=== PATIENT | female | born 1980 | race Caucasian/White ===

== ENCOUNTER 2022-11-22 07:00 | Outpatient (CLI) | payer OTHER ==
--- NOTE | 2022-11-22 15:22 | XRAY Report ---
PROCEDURE: Ankle 3 View LT INDICATIONS: SPRAIN OF LEFT ANKLE TECHNIQUE: 3 views of the ankle were acquired. COMPARISON: None. FINDINGS: Bones: No fractures or dislocations. Ankle mortise is normally aligned. No suspicious bony lesions . Soft tissues: Positive tibiotalar joint effusion. Achilles tendon appears normal. IMPRESSION: Ankle joint effusion. No evidence acute bony abnormality of the left ankle. If clinical suspicion and/or symptoms persist, further assessment with repeat plain films or advanced imaging (e.g., CT, MRI, or bone scan) may be helpful for further assessment. Reviewed by: Good Vu MD on 11/22/2022 3:20 PM PDT Approved by: Good Vu MD on 11/22/2022 3:20 PM PDT Station ID: [id number]
== END 2022-11-22 23:59 | disposition home or self-care (01) ==
LOC: DI.S 07:00
PROVIDERS: ATTEND Emergency Medicine
DX: S93.412A Sprain of calcaneofibular ligament of left ankle, initial encounter (principal); M25.472 Effusion, left ankle

== ENCOUNTER 2022-12-27 15:58 | Outpatient (CLI) | payer OTHER ==
--- NOTE | 2022-12-28 13:26 | Ultrasound Report ---
PROCEDURE: Pelvic w/Transvaginal INDICATIONS: IRREGULAR MENSTRATION TECHNIQUE: Real-time scanning was performed of the pelvic organs, with image documentation. Additional endovagi nal scanning was necessary due to incomplete visualization of the adnexal and endometrial structures by transabdominal scanning. COMPARISON: None. FINDINGS: Uterus: Uterus is anteverted and normal in size at 8.8 x 3.7 x 4.6 cm. The myometrium is homogeneou s. The endometrium measures 11.7 mm in combined thickness. No fibroids noted. Ovaries: The right ovary measures 2.7 x 1.6 x 2.3 cm, with a calculated ovarian volume of 5.2 cc. T he left ovary measures 3.4 x 2 0.0, 3.2 cm, with a calculated ovarian volume of 11.4 cc. The ovaries have a normal sonographic appearance. Less than 12 follicles can be seen in each ovary. No adnexal masses are seen. No cystic lesions measuring greater than 3 cm. Is a hemorrhagic cyst of the left ov jaron measuring 2.6 x 1.8 x 2.1 cm. Other: No pathologic free abdominal or pelvic fluid. IMPRESSION: 1. Endometrial thickness is somewhat prominent, but not abnormally so, measuring 11.7 mm. Comment: Consider follow-up ultrasound in approximately 6 weeks to document change in endometrial thi ckness. Reviewed by: Good Vu MD on 12/28/2022 1:25 PM PDT Approved by: Good Vu MD on 12/28/2022 1:25 PM PDT Station ID: [id number]
== END 2022-12-27 15:59 | disposition home or self-care (01) ==
LOC: DI 15:58
PROVIDERS: ATTEND Nurse Practitioner
DX: N92.6 Irregular menstruation, unspecified (principal)

== ENCOUNTER 2023-01-08 07:19 | Outpatient (CLI) | payer OTHER ==
[2023-01-08 08:15] LABS: THYROID STIMULATING HORMONE 1.72 uIU/mL (0.34-5.60)
[2023-01-09 06:10] LABS: DHEA-SULFATE 66.6 ug/dL (57.3-279.2); ESTRADIOL 40.7 pg/mL (.); PROGESTERONE 0.5 ng/mL (.)
[2023-01-09 17:08] LABS: SEX HORM BINDING GLOB SERUM 92.8 nmol/L (24.6-122.0)
== END 2023-01-08 07:20 | disposition home or self-care (01) ==
LOC: LAB 07:19
PROVIDERS: ATTEND Nurse Practitioner
DX: N92.6 Irregular menstruation, unspecified (principal)
CPT/HCPCS: 36415; 82397; 82627; 82670; 83001; 83002; 83498; 84144; 84270; 84402; 84403; 84443

== ENCOUNTER 2025-01-16 08:04 | Inpatient (IN) ==
[2025-01-16] MEDS ORDERED: METHYLERGONOVINE 0.2 MG/ML VIAL IM PRN (09:11)
[2025-01-16] MEDS ORDERED: OXYTOCIN 10 UNIT/ML VIAL IM PRN (09:11)
[2025-01-16] MEDS ORDERED: OXYTOCIN/SODIUM CHLORIDE 500 ML IV PRN (09:11)
[2025-01-16] MEDS ORDERED: TERBUTALINE 1 MG/ML VIAL SUBQ PRN (09:11)
[2025-01-16] MEDS ORDERED: TRANEXAMIC ACID IN NACL 1,000 MG/100 ML BAG IV PRN (09:11)
[2025-01-16] MEDS ORDERED: SODIUM CHLORIDE FLUSH 0.9% 10 ML SYRINGE IVP PRN (09:11)
[2025-01-16] MEDS ORDERED: LABETALOL 20 MG/4 ML SYRINGE IVP PRN ×3 (09:11)
[2025-01-16] MEDS ORDERED: fentaNYL 100 MCG/2 ML VIAL IVP PRN (09:11)
[2025-01-16] MEDS ORDERED: CARBOPROST TROMETHAMINE 250 MCG/ML VIAL IM PRN (09:11)
[2025-01-16] MEDS ORDERED: hydrALAZINE INJ 20 MG/ML VIAL IVP PRN (09:11)
--- OUTSIDE RECORDS SUMMARY | 2025-01-16 10:04 | EXTERNAL MEDICAL SUMMARY RPT | Continuity of Care Document ---
Author Organization [facility] Address [address] [place] [id number] Phone Problems date description facility 2024-11-11 18:01 [facility]counter [facility] 2024-11-11 20:25 [facility]counter [facility] 2024-11-11 20:26 Encounter for [facility] 2024-11-12 00:02 Encounter for immunization [facility] 2024-12-16 18:58 Supervision of pregn on[facility] resulting from [facility] technology, [facility] 2024-12-16 19:40 Encounter for screeni ng for [facility] 2024-12-17 00:02 Encounter for screeni ng for Streptococcus [facility] 2024-12-17 00:04 Encounter for screeni ng for Streptococcus [facility] 2024-12-17 07:19 Encounter for screeni ng for Streptococcus [facility] 2024-12-17 07:30 Encounter for screeni ng for Streptococcus [facility] 2024-12-22 08:07 Encounter for screeni ng for Streptococcus [facility] 2024-12-23 16:36 Egg (Oocyte) donor under age 35 , [facility] 2024-12-29 14:47 Supervision of pregn onelia resulting from assisted reproductive technology, [facility] 2025-01-01 12:57 Supervision of elderly primigra gretel, third [facility] 2025-01-01 12:57 Supervision of pregn onelia resulting from assisted reproductive technology, third [facility] 2025-01-01 12:57 Supervision of pregn onelia resulting from assisted reproductive technology, unspecified [facility] 2025-01-01 12:57 [facility] 2025-[facility]-01 12:58 Supervision of pregn onelia resulting from assisted reproductive technology, unspecified trimester [facility] 2025-01-05 10:18 Supervision of pregn onelia resulting from assisted reproductive technology, unspecified trimester [facility] 2025-01-07 14:56 Supervision of elderly primigra gretel, third trimester [facility] 2025-01-07 14:57 Supervision of elderly primigra gretel, third trimester [facility] 2025-01-07 14:57 Supervision of pregn onelia resulting from assisted reproductive technology, third trimester [facility] 2025-01-07 14:57 Supervision of pregn onelia resulting from assisted reproductive technology, unspecified trimester [facility] 2025-01-07 14:57 39 weeks gestation of [facility] 2025-01-07 14:58 Supervision of pregn onelia resulting from assisted reproductive technology, unspecified trimester [facility] 2025-01-12 10:23 Supervision of pregn onelia resulting from assisted reproductive technology, unspecified trimester [facility] 2025-01-12 10:25 Supervision of pregn onelia resulting from assisted reproductive technology, unspecified trimester [facility] 2025-01-12 11:55 Supervision of pregn onelia resulting from assisted reproductive technology, unspecified trimester [facility] 2025-01-13 12:00 Procedure and treatm ent not carried out, unspecified reason [facility] Results/Labs test date facility value unit notes Result panel 1 GROUP B STREP PCR 2024-12-16 19:40 Social History date description facility
[2025-01-16 10:09] LABS: HCT - HEMATOCRIT 38.5 % (37.0-47.0); HGB - HEMOGLOBIN 12.5 g/dL (12.0-16.0); MEAN PLATELET VOLUME 10.8 fL (7.9-10.8); NRBC ABSOLUTE COUNT (AUTO) 0.00 x10^3/uL; NUCLEATED RED BLOOD CELLS AUTO 0.0 /100WBC; PLT - PLATELET COUNT 284 10^3/uL (130-450); RED CELL DISTRIBUTION WIDTH 15.9 % (12.0-15.0)
--- NOTE | 2025-01-16 10:12 | HISTORY & PHYSICAL EXAMINATION ---
Admit History Smoking Status: Never smoker Meds/Allgy Home Medications Ambulatory Orders Medication Instructions Recorded Confirmed vits no.126-ferrous fum tab PO 05/30/2401/05 28 mg iron-folic acid 800 mcg tablet (Classic ) doxylamine succinate 25 mg tablet 25 mg PO Q6H PRN 01/05/25 (Unisom (doxylamine)) metoclopramide HCl 5 mg tablet 5 mg PO Q6H PRN nausea and 10/07/24 01/05/25 (Reglan) vomiting #90 tabs Allergies Allergies Allergy/AdvReac Type Severity Reaction Status Date / Time tree nut Allergy Intermediate Respiratory Verified 01/05/25 09:41 PFSH Active Problems All Active Problems (Updated 01/16/25 @ 09:12 by Shannan Sánchez, PHILLIP, MED SPECIALIST) Post-dates (Acute) Encounter for screening for Streptococcus B (Acute) Abnormal glucose tolerance in mother complicating (Acute) Advanced maternal age during in second trimester (Acute) Egg (oocyte) (ovum) donor, under age 35, anonymous recipient (Acute) conceived using assisted reproductive technology (ART) (Acute) Advanced maternal age during in first trimester (Acute) Advanced maternal age during (Acute) Supervision of normal (Acute) Positive test (Acute) Family History Family History (Updated 05/30/24 @ 13:19 by Genevieve Trotter, RN) Aunt Breast cancer Cancer Maternal grandfather Diabetes Social History Social History (Updated 05/13/24 @ 12:34 by Sarina Jordan RN) Smoking Status: Never smoker Do you dip or chew tobacco?: No Patient requests smoking cessation consult: No Initiate information on smoking cessation: No Plan for Labor Plan For Labor I expect patient to be DC'd or transferred within 96 hours.: Yes Plan for Labor: HPI: Luana is a 44yo @ 41.0wks gestation by IVF transfer date who presents to [facility] for medical induction of labor. Cervical exam deferred upon arrival secondary to absence of contractions since last SVE at her routine office visit last week at which time she was fingertip/thick/-2, posterior and vertex. FHR demonstrates a category I pattern. She has been a patient of [facility] for the duration of her . complications include advanced maternal age, IVF , obesity, elevated 1 hour glucola, and postdates. She did not tolerate her 1 hour glucola and rather than completing a 3 hour GCT she elected to profile. Vast majority of her values were WNL and she continued to adhere to the gestational diabetes dietary recommendations throughout her . She will be admitted to [facility] for medical induction of labor. She is supported by her partner Braxton today. : Current FET: 04/23/24 JOSH by FET:01/09/2025 US:05/27/24 - 7w4d c/w dates Final JOSH: 01/09/25 Problems: AMA, BMI>30, IVF (donor oocyte, partner sperm) -recommend IOL at 39.0-39.6wks gestation - testing to begin at 36wks with weekly NSTs (ordered) 10/07/2024: Elevated 1 hour gtt, did not tolerate well despite eating just before. Would like to repeat as she feels this may be a false positive result. Initial fasting and pp values reassuring after just over a week, does not feel she can continue as it's causing her significant anxiety. Agreeable to continuing fasting blood glucose tracking. Was initially going to decline FAS follow up (missing views) but agreeable to completion with monthly growth scans. FOB: Braxton Bonilla It's a GIRL!! In the event of an emergency, accepts the administration of blood products. 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 Monogamous with male partner Denies current use of alcohol or tobacco, marijuana or other recreational drugs. Reports that she is safe in current relationship. Family Hx: Denies family history of congenital anomalies, Cystic Fibrosis or chromosomal abnormalities; Maternal aunt- breast cancer; MGF - diabetes Pre- Weight: 180 BMI: 34.0 Blood type: A+ Antibody: negative CBC: H/H: 13.4/40.4 plt 269 RUB: immune VZV: immune HBsAg: NR HepC: NR RPR/AB-EIA: NR HIV: NR PAP: GC/CT: neg HSV: denies in self and partner Genetic testing: AFP negative FAS: 09/09/2024 Placenta: Posterior Cord: 3VC MADISON: 13.7 EFW: 520.8g 50gm OGCT: 156; profiling and all values WNL consistently 3HR GTT: declined TDAP: 11/11/2024 Breast Pump: 10/07/2024 GBS: negative Physical Exam: Normocephalic, atraumatic Heart RRR w/o M/G/R Lungs CTAB Abdomen gravid, soft, nontender EFW 3700g FHR baseline 130s, moderate variability, + accels, no decels No contractions appreciated via tocometry Bilateral LE's trace edema Mood is good Assessment: 44yo @ 41.0wks gestation Postdates IVF Advanced maternal age GBS negative FHR Category I Plan: Admit to [facility] for medical induction of labor with pre-induction cervical ripening with misoprostol 50mcg BC q 4 hrs. Continuous monitoring. Encouraged ambulation and position changes. Jacuzzi PRN. Nitrous oxide PRN. Epidural per maternal request. Anticipate . Conclusion/Plan Lab Results 01/16/25 09:30 01/16/25 09:30
[2025-01-16 11:33] LABS: ALT ALANINE AMINOTRANSFERASE 17.0 IU/L (10-60); AST ASPARTATE AMINOTRANSFERASE 18.0 IU/L (10-42); BUN - BLOOD UREA NITROGEN 11.0 mg/dL (6-20); CARBON DIOXIDE - CO2 20.0 mmol/L (21-32); CREATININE 0.6 mg/dL (0.6-1.3); GFR - MDRD 109.0 (>89)
--- NOTE | 2025-01-16 14:14 | PHARMACY PROGRESS NOTE ---
Best Possible Medication History Admit Date and Time: 01/16/25 0911 Home Medications Medication Instructions Recorded Confirmed Type vits no.126-ferrous fum 1 tab PO DAILY 01/16/25 History 28 mg iron-folic acid 800 mcg tablet (Classic ) doxylamine succinate 25 mg tablet 25 mg PO Q6H PRN albino sea 06/23/24 01/16/25 History (Unisom (doxylamine)) metoclopramide HCl 5 mg tablet 5 mg PO Q6H PRN nausea and 10/07/24 01/16/25 Rx (Reglan) vomiting #90 tabs Processed by: Pharmacy (Medication reconciliation completed by [employer] Vice PresidentFrancisco) Medications reviewed in ED?: No Medication History completed: Yes Patient Interview: Completed Secondary Source(s): Insurance records [facility] Statement: As the person ultimately responsible for medication therapy, providers are able to order a medication from an existing home medication list in [facility] via the "Reconcile Routine" prior to Confirmation of that medication by family support worker. Such practice is discouraged except when the physician, in their clinical judgment, deems that a medical need exists for a medication without regard to previous use.
[2025-01-16] MEDS ORDERED: ONDANSETRON ODT 4 MG TABLET TL PRN (21:27)
[2025-01-16] MEDS ORDERED: ONDANSETRON 4 MG/2 ML VIAL IVP PRN (21:27)
[2025-01-16] MEDS: DOXYLAMINE 25 MG TABLET PO PRN (22:29)
--- NOTE | 2025-01-17 09:47 | PROVIDER PROGRESS NOTE ---
Labor Progress Note Labor Progress Note Labor Progress Note/Additional Text: S: Breathing through contractions while using nitrous oxide. She appears to be coping well. She does feel like she is getting fatigued but coping well at this time. Voices that she would likely desire an epidural at some point in her labor process. She denies ERNST, visual disturbances, RUQ or epigastric pain. Her mom and partner as supportive at the bedside. O: FHR baseline 150s, moderate variability, + accels, no decels Contractions palpate moderate every 5-7 minutes with soft resting tone SVE 1/70/-2, posterior. Vertex. SROM @ 0323, light meconium Normotensive currently, mild range blood pressures earlier in the evening. Meets criteria for diganosis of gestational hypertension. S/p 6 doses of 50mcg BC misoprostol for pre-induction cervical ripening. A: 44yo @ 41.1wks gestation Gestational hypertension Postdates IVF FHR Category I GBS negative P: Continue expectant management x 12hrs post-SROM (1530 this afternoon) per patient request as she desires minimal intervention. At that time, elva santana initiate pitocin for induction of labor. Continuous monitoring. Encouraged ambulation and position changes. Jacuzzi PRN. Nitrous oxide PRN. Epidural per maternal request. Box Lining Machine Feeder notified of presence of meconium amniotic fluid. Anticipate .
[2025-01-17] MEDS ORDERED: LIDOCAINE 2%-EPI 1:100000 20 ML MDV ONE (11:32)
[2025-01-17] MEDS ORDERED: ROPIVACAINE 0.2% 200 MG/100 ML BAG EP ONE (11:33)
[2025-01-17] MEDS ORDERED: ePHEDrine 50 MG/ML VIAL IVP PRN (12:43)
[2025-01-17] MEDS ORDERED: ONDANSETRON 4 MG/2 ML VIAL IVP PRN (12:43)
[2025-01-17] MEDS ORDERED: NALBUPHINE 10 MG/ML AMP IVP PRN (12:43)
[2025-01-17] MEDS ORDERED: NALOXONE 0.4 MG/ML VIAL IVP PRN (12:43)
--- NOTE | 2025-01-17 12:46 | ANESTHESIA PROCEDURE NOTE ---
Pre-Anesthesia VS, & Labs Diagnosis Surgical Diagnosis:: labor pain Procedure Procedure: placement of labor epidural Vitals Vital Signs: Temp Pulse Resp BP 36.6 C 90 16 139/89 H 01/16/25 10:03 01/16/25 10:03 01/16/25 10:03 01/16/25 10:03 Height (in): 5 ft 1 in NPO Last Fluid Intake: taking clears now Is Patient ?: Yes Estimated Due Date:: 01/17/25 Lab Results Current Lab Results: Laboratory Tests 01/16/25 09:30: WBC 9.6, RBC 4.26, Hgb 12.5, Hct 38.5, MCV 90.4, MCH 29.3, MCHC 32.5, RDW 15.9 H, Plt Count 284, MPV 10.8, Neut # (Auto) 6.9 H, Lymph # (Auto) 2.0, [place] # (Auto) 0.5, Eos # (Auto) 0.1, Baso # (Auto) 0.1, Absolute Nucleated RBC 0.00, Nucleated RBC % 0.0, Sodium 134 L, Potassium 3.8, Chloride 106, Carbon Dioxide 20 L, Anion Gap 8.0, BUN 11, Creatinine 0.6, Estimated GFR (MDRD) 109, Glucose 104, Calcium 8.8, Total Bilirubin 0.3, AST 18, ALT 17, Alkaline Phosphatase 186 H, Total Protein 6.1 L, Albumin 3.3, Globulin 2.8, Albumin/Globulin Ratio 1.2, Blood Type A POSITIVE, Antibody Screen NEGATIVE Lab results reviewed: Yes 01/16/25 09:30 01/16/25 09:30 Meds/Allgy Home Medications Ambulatory Orders Medication Instructions Recorded Confirmed vits no.126-ferrous fum 1 tab PO DAILY 01/16/25 28 mg iron-folic acid 800 mcg tablet (Classic ) doxylamine succinate 25 mg tablet 25 mg PO Q6H PRN albino sea 06/23/24 01/16/25 (Unisom (doxylamine)) metoclopramide HCl 5 mg tablet 5 mg PO Q6H PRN nausea and 10/07/24 01/16/25 (Reglan) vomiting #90 tabs Allergies Allergies Allergy/AdvReac Type Severity Reaction Status Date / Time tree nut Allergy Intermediate Respiratory Verified 01/05/25 09:41 [facility] Active Problems All Active Problems Post-dates (Acute) Encounter for screening for Streptococcus B (Acute) Abnormal glucose tolerance in mother complicating (Acute) Advanced maternal age during in second trimester (Acute) Egg (oocyte) (ovum) donor, under age 35, anonymous recipient (Acute) conceived using assisted reproductive technology (ART) (Acute) Advanced maternal age during in first trimester (Acute) Advanced maternal age during (Acute) Supervision of normal (Acute) Positive test (Acute) Family History Family History Aunt Breast cancer Cancer Maternal grandfather Diabetes Social History Social History Smoking Status: Never smoker Do you dip or chew tobacco?: No Patient requests smoking cessation consult: No Initiate information on smoking cessation: No Anesthesia Exam (Expanded) Exam General: Moderate distress Dental: WNL Mouth Openin Fingerbreadth Neck Mobility: Normal Mallampati classification: II Thyromental Distance: 4-6 cm Respiratory: Lungs clear Cardiovascular: Regular rate Plan Plan Anesthesia Type: Epidural Consent for Procedure(s) Verified and Reviewed: Yes Code Status: Attempt Resuscitation ASA Classification ASA classification: 2-Mild systemic disease Is this case an emergency?: No
[2025-01-17] MEDS ORDERED: PHENYLEPHRINE HCL 0.5 MG/5 ML AMPULE ONE (13:23)
[2025-01-17] MEDS: LACTATED RINGERS 500 ML IV ONE (13:50)
[2025-01-17] MEDS: LACTATED RINGERS 1,000 ML IV PRN (13:51)
[2025-01-17] MEDS ORDERED: PHENYLEPHRINE HCL 0.5 MG/5 ML AMPULE IVP PRN (14:05)
[2025-01-17] MEDS: METOCLOPRAMIDE 10 MG/2 ML VIAL IVP PRN (14:09)
[2025-01-17] MEDS: OXYTOCIN/SODIUM CHLORIDE 500 ML IV SCH (16:53)
[2025-01-17] MEDS ORDERED: ACETAMINOPHEN 650 MG SUPP PR PRN ×2 (18:20→18:51)
[2025-01-17] MEDS ORDERED: ACETAMINOPHEN 500 MG TABLET ONE (19:05)
[2025-01-17] MEDS: ACETAMINOPHEN 500 MG TABLET PO PRN (19:09)
[2025-01-17] MEDS: ROPIVACAINE 0.2% 200 MG/100 ML BAG EP PRN (19:40)
[2025-01-17] MEDS: CALCIUM CARBONATE CHEW 500 MG TABLET PO STA (19:45)
--- NOTE | 2025-01-17 19:55 | PROVIDER PROGRESS NOTE ---
Labor Progress Note Labor Progress Note Labor Progress Note/Additional Text: Luana is a 44 year old now at 41+ 1 weeks gestation with IVF conceived . complicated now by AMA, elevated one hour glucose (normal profiling), postdates, meconium stained amniotic fluid tachycardia and ges tational hypertension (now normotensive). Vital Signs: - Temperature: 37.2C - Blood Pressure: normotensive - Maternal Heart Rate: 100-115 (elevated during the time of care as well) Status: - Heart Rate: Category II - Episode of tachycardia begining at 18:35 - Initial marked variability, followed by Prolonged acceleration and an eventual baseline change to 190-200 bpm - Return to previous baseline of 160-165 bpm after approximately 55 minutes Labor Progress: - Gestational Age: 41 weeks + 1 day - Last SVE: 4/80/-2/ posterior/vertex - SROM at 03:23 with light meconium, continued light meconium - Contractions: Palpate moderately q 6-7 minutes, not at goal Labor Management: - at 41 weeks + 1 day gestation - IVF - Status post pre-induction cervical ripening with 5 doses of misoprostol 50 mcg - Currently in active labor with epidural analgesia - GBS negative Status: - Category II heart rate pattern - Episode of prolonged tachycardia following positional change. Interventions,: positional change, IV fluid bolus, Pitocin stopped, PO tylenol, with subsequent resolution after approximately 55 minutes. Gestational Hypertension: - Diagnosed on 01/16/2025 - Normotensive since epidural placement. Labor Management: - Continue epidural for pain management - Resume Pitocin at approximately 20:30 - Maintain continuous monitoring - Encourage positional changes, avoiding right side due to poor tolerance and concern for placental perfusion. - Goal: Contractions every 2-3 minutes once pitocin resumed. Monitoring: - Continue close observation of heart rate patterns - Intervene promptly if recurrence of concerning patterns Maternal Monitoring: - Regular vital sign checks - Monitor for signs of fever or hypertension Medications: - Administer Benadryl and Tums during 45 minute pitocin break as discussed for potential cervical dilation assistance. Discussed that the data isn't strong behind these interventions but that there is minimal risks associated with these interventions. 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 Juliann Lua updated at 1900 on tachycardia baseline change. We discussed observing for 15-20 more minutes after she reviewed the initial strip, by the time the observation time had ended FHR baseline had returned to 165. Will continue to provide updates to Dr. Lua as well as patient and family on progress and interventions.
[2025-01-17] MEDS ORDERED: SODIUM CHLORIDE 0.9% 1,000 ML ONE (22:19)
--- NOTE | 2025-01-17 22:27 | PROVIDER PROGRESS NOTE ---
Labor Progress Note Labor Progress Note Labor Progress Note/Additional Text: 44 yo at 41+1 weeks gestation s/p 5 doses misoprostol, pitocin now at 5mu/min. CTX q 5 minutes. Following a 2 minute variable appearing heart rate deceleration, 25 minutes of tachycardia. FHR baseline up to 180, moderate variability sustained. Afebrile. Maternal heart rate 76-82, BP 103/56. SVE 5/90/-2. IUPC placed for amnioinfusion and uterine contraction adequacy. Amnioinfusion ordered. Comfortable with epidural. MVU goal 200mmHg in 10 minutes.
--- NOTE | 2025-01-17 23:34 | PROVIDER PROGRESS NOTE ---
Labor Progress Note Labor Progress Note Labor Progress Note/Additional Text: Following amnioinfusion starting about 0, FHR returned to baseline of 155- 160, moderate variability until 2310 (cateogry I). Was notified by L&D team of decreased variability, increase in baseline to 165 and late/variabile decelerati ons (category II). Orders given for pitocin to be stopped (titrated to only 5mu/min, MVU max 110). FHR baseline returned to 155, moderate variability, + accelerations (Category I).
[2025-01-18] MEDS: SODIUM CHLORIDE FLUSH 0.9% 10 ML SYRINGE IVP SCH (00:48)
--- NOTE | 2025-01-18 05:13 | PROVIDER PROGRESS NOTE ---
Labor Progress Note Labor Progress Note Labor Progress Note/Additional Text: SVE 5.5/80/-1/ more midposition/ light meconium, ctx q 5-6 minutes x 5 hours pitocin resumed at 0010, now at 2mu/min. Baseline FHR 145-155, min-moderate variability + accelerations. Did have a 15 min period of tachycardia around 0200 followed by several variables and late deceleration around 0240 that resolved and followed a period of minimal variability. Overall, the last 5 hours, FHR category I with intermittent category II. MVU 140-150. Reviewed goal is to get contractions a bit closer together and achieve adequate MVU's then repeat SVE to assess for more cervical change. Afebrile. Luana is feeling discouraged with the minimal change. Reassured that there is change in station, we have not yet reached active labor, and her contractions/MVU were not adequate overnight to expect significant change. Feeling increased pressure with contractions using epidural CLOTH STOCK SORTER. Epidural dose was increased once throughout the night. Encouraged her to ask for anesthesia's return to manage pain with epidural as the pressure and pain will only become more regular and intense.
--- NOTE | 2025-01-18 08:23 | PROVIDER PROGRESS NOTE ---
Progress Note Progress Note Progress Note: Called by Elizabeth last night to review FHT about 7 pm. Tachycardia with moderate variability then. And FHR baseline settled down over the next 15 min. Continued to watch for the next 30 min. Check in again this am. FHT baseline about 170 for the last hour or so. Variability min or moderate. no decels that I see. on the 5 tier scale this is a blue. OB aware. labor with very slow process and contractions are not adequate. IUPC in place. Meconium failed 1 hr glucose test and profiling. normal growth by exams. normal sugars with home checks. will add A1c to labs. no follow up US. 20 week US did not clear cardiac views. Patient declined subsequent scans. BMI 34 at initial OB visit. 25 pounds weight gain during . Update with Elizabeth now. amnioinfusion for 2 hrs last night. cervix 6 cm and anterior cervix swollen, benadryl last night. tylenol last night. afebrile. Still seeing meconium. RNs are not willing to continue with pitocin. Patient does not want c section yet. I strongly recommend continuing to go up on pitocin until we get an adequate contraction pattern or true intolerance labor.
[2025-01-18] MEDS ORDERED: ACETAMINOPHEN 650 MG SUPP PR PRN (08:26)
[2025-01-18] MEDS: SODIUM CHLORIDE 0.9% 1,000 ML IY ONE (08:30)
[2025-01-18] MEDS: CALCIUM CARBONATE CHEW 500 MG TABLET PO STA (08:59)
[2025-01-18] MEDS: LACTATED RINGERS 1,000 ML IV SCH (09:30)
--- NOTE | 2025-01-18 10:38 | PROVIDER PROGRESS NOTE ---
Labor Progress Note Labor Progress Note Labor Progress Note/Additional Text: Luana is a 44-year-old now at 41 weeks + 2 days gestation. She is currently in labor after induction with 5 doses of misoprostol followed by Pitocin. Contractions are occurring every 2-6 minutes. Cervical exam at 8:30 AM showed 6 cm dilation, 80% effacement, and -1 station. The anterior cervix is noted to be swollen. Comfortable with epidural. heart rate baseline is 155 bpm with moderate variability, positive accelerations, and no significant decelerations. Earlier, at approximately 7:30 AM, the baseline was 170 bpm for about 1.5 hours with minimal to moderate variability. Thick meconium was noted during the repeat cervical exam. Interventions include: - Amnioinfusion: Initial 250 cc last night, baby reacted well. Repeated infusion of 250 cc at 125 cc/hour for 2 hours - PO Tylenol 1000 mg - PO Tums - IV benadryl - Limited ability for positional changes as baby becomes tachycardic on right side and intermittently on left. Uterine resting tone is 20-25 mmHg. Pitocin was restarted at 9 AM with a goal to titrate to approximately 200 Cullen units. Labor Induction: - Patient progressing slowly with cervical dilation from 5.5 to 6 cm over 2.5 hours - Cervical swelling noted, potentially impeding progress - Afebrile. - Urine output just over 30cc/hour through night and this morning. Will repeat CMP. With recurrent tachycardia concern for chorioamnionitis. No foul smelling vaginal discharge, Maternal heart rate WNL. Will order CBC. Status: - Intermittent tachycardia with baseline ranging from 155-170 bpm - Minimal to moderate variability and positive accelerations present - No significant decelerations observed - Thick meconium present, pediatrics aware of needed presence at time of delivery. Complications: - Cervical swelling - Intermittent tachycardia - Presence of thick meconium Labor Management: - Pitocin restarted at 0900 following initiation of amnioinfusion, PO tylenol, IV benadryl and PO tums. - Monitor uterine activity and titrate pitocin per protocol to a goal of 200MVU - Continuous heart rate monitoring - Maintain epidural for labor analgesia. Consulting anesthesia as needed - Will plan to repeat cervical exam 4 hours following adequate contraction pattern, sooner if indicated - Consulted with Dr. Lua this morning about 0845. Reviewed that by the 5 tier FHR system, tachycardia, even with minimal variability is not a contraindication for continued titration of pitocin. Shared with RN team who were initially uncomfortable titrating pitocin for concern of safetly. Following our discussion, they felt comfortable resuming pitocin and are working to titrate to adequate contraction pattern. Discussed at length with nursing team, Dr. Lua, and patient that if FHR meets criteria for intolerance or if no cervical change following 4 hours of adequate MVUs, she would meet criteria for primary section. Luana is coping well, trying to rest, feeling hopeful after cervical change but states it's hard to not feel discouraged with the prolonged process. Has had epidural for now almost 24 hours. Ruptured now approximately 32 hours. Luana doesn't want it, but is prepared for a potential c/s if indicated. She understands that at this time she does not meet criteria for arrest of progression or intolerance. She is currently 6cm, so just now in active labor. MVUs prior to 10:30 less than 150mmHG. Will continue to work to include clear communication between all team members regarding management plan.
[2025-01-18 11:09] LABS: HCT - HEMATOCRIT 35.8 % (37.0-47.0); HGB - HEMOGLOBIN 11.7 g/dL (12.0-16.0); MEAN PLATELET VOLUME 10.6 fL (7.9-10.8); NRBC ABSOLUTE COUNT (AUTO) 0.02 x10^3/uL; NUCLEATED RED BLOOD CELLS AUTO 0.1 /100WBC; PLT - PLATELET COUNT 264 10^3/uL (130-450); RED CELL DISTRIBUTION WIDTH 16.4 % (12.0-15.0)
[2025-01-18 11:23] LABS: ALT ALANINE AMINOTRANSFERASE 16.0 IU/L (10-60); AST ASPARTATE AMINOTRANSFERASE 20.0 IU/L (10-42); BUN - BLOOD UREA NITROGEN 11.0 mg/dL (6-20); CARBON DIOXIDE - CO2 19.0 mmol/L (21-32); CREATININE 0.9 mg/dL (0.6-1.3); GFR - MDRD 68.0 (>89)
[2025-01-18 11:36] LABS: ESTIMATED AVERAGE GLUCOSE 114 mg/dL (70-100); HEMOGLOBIN A1c% 5.6 % (4.27-6.07)
[2025-01-18] MEDS ORDERED: LIDOCAINE-PF 2% 10 ML AMP SUBQ ONE (12:25)
--- NOTE | 2025-01-18 14:58 | PROVIDER PROGRESS NOTE ---
Progress Note Progress Note Progress Note: tracing and chart reviewed. right now minimal variability buy had been moderate until a short time ago. unable to assess contractions right now. Will reassess in 15 min.
--- NOTE | 2025-01-18 15:38 | PROVIDER PROGRESS NOTE ---
Progress Note Progress Note Progress Note: variability back to moderate right after I finished my FHT review. last recorded check still 6.5 cm at noon.
--- NOTE | 2025-01-18 16:50 | PROVIDER PROGRESS NOTE ---
Labor Progress Note Labor Progress Note Labor Progress Note/Additional Text: SVE at 1600, minimal cervical change despite adequate MVUx4 hours. Discussed this meets criteria for arrest of progression. Given time to discuss with family. Mood is overall good. She's tearful, but understands it's time. Feels she is ready to proceed with primary section. Family supportive. Discussed risks of surgery, expectations of surgery and postoperative recovery. FHR category primarily category I, Intermittent category II. FHR baseline now WNL. Maternal heart rate WNL. BP WNL. Pitocin stopped, IUPC removed. NPO. Has only had clear liquids since placement of epidural 28 hours ago. Amniotic fluid remains meconium stained. Dr. Lua, who has been closely consulted through the course of Luana's labor, agreeable to calling the operative team in now for the section. OR team recall, including anesthesia and pediatrics initiated by rn discharge. Will hand over primary care of Luana upon Dr. Lua's arrival on the unit following introductions. It has been a pleasure to care for Luana during the course of her and labor and to be present at the delivery of her baby girl.
[2025-01-18] MEDS ORDERED: PHENYLEPHRINE 10 MG/ML VIAL ONE (17:07)
[2025-01-18] MEDS ORDERED: fentaNYL 100 MCG/2 ML VIAL ONE (17:09)
[2025-01-18] MEDS ORDERED: MORPHINE PF 5 MG/10 ML VIAL ONE (17:09)
[2025-01-18] MEDS ORDERED: OXYTOCIN/SODIUM CHLORIDE 500 ML IV ONE (17:14)
[2025-01-18] MEDS ORDERED: OXYTOCIN 10 UNIT/ML VIAL ONE (17:14)
[2025-01-18] MEDS ORDERED: ePHEDrine 50 MG/ML VIAL IVP ONE (17:14)
--- NOTE | 2025-01-18 17:18 | HISTORY & PHYSICAL EXAMINATION ---
Chief Complaint Chief Complaint Chief Complaint: failure to progress in labor History of Present Illness History of Present Illness HPI Comment/Other: Admitted for labor induction Sunday am and labor induction moved very slowly. Now 6 cm and epidural for over 24 hrs. ruptured for over 36 hrs. no fever but episodes of maternal and tachycardia. baby conceived thru IVF/ICSI for donor egg, donor < 35 y/o. complicated by US that did not see heart well and no f/u. Elevated 1 hr glucose with no 3 hr. profiling normal. A1c today 5.6 Meds/Allgy Home Medications Ambulatory Orders Medication Instructions Recorded Confirmed vits no.[id number]-ferrous fum 1 tab PO DAILY 01/16/25 28 mg iron-folic acid 800 mcg tablet (Classic ) doxylamine succinate 25 mg tablet 25 mg PO Q6H PRN albino sea 06/23/24 01/16/25 (Unisom (doxylamine)) metoclopramide HCl 5 mg tablet 5 mg PO Q6H PRN nausea and 10/07/24 01/16/25 (Reglan) vomiting #90 tabs Allergies Allergies Allergy/AdvReac Type Severity Reaction Status Date / Time tree nut Allergy Intermediate Respiratory Verified 01/05/25 09:41 PFSH Active Problems All Active Problems (Updated 01/18/25 @ 17:33 by Juliann Lua MD) Meconium in amniotic fluid (Acute) Failure to progress in first stage of labor (Acute) Obesity affecting in third trimester (Acute) Supervision of high risk in third trimester (Acute) Post-dates (Acute) Abnormal glucose tolerance in mother complicating (Acute) Egg (oocyte) (ovum) donor, under age 35, anonymous recipient (Acute) conceived using assisted reproductive technology (ART) (Acute) Advanced maternal age during (Acute) Family History Family History Aunt Breast cancer Cancer Maternal grandfather Diabetes Social History Social History (Updated 01/18/25 @ 17:30 by Juliann Lua MD) Smoking Status: Never smoker Do you dip or chew tobacco?: No Patient requests smoking cessation consult: No Initiate information on smoking cessation: No Living arrangement: At home Marital Status: Living Condition: With spouse/s.o. 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 leaking fluid. some edema. no fever. no respiratory or heart symptoms. Exam Exam comfortable. speaking clearly, good questions. breathing normally. heart rrr. abdomen not tender but epidural. leaking meconium stained fluid. extrememities with some edema. SCDs on. Conclusion/Plan Problem List (1) Failure to progress in first stage of labor: (2) Meconium in amniotic fluid: (3) Obesity affecting in third trimester: Plan Proceed with low transverse c section for failure to progress in labor. Dr. Canales here and has been updated about Luana's history. Lab Results Lab results reviewed: Yes 01/18/25 11:04 01/18/25 11:04
[2025-01-18] MEDS: CITRIC ACID/SODIUM CITRATE 15 ML UDC PO ONE (17:25)
[2025-01-18] MEDS ORDERED: LACTATED RINGERS 1,000 ML IV SCH ×3 (18:00→20:00)
[2025-01-18] MEDS ORDERED: WITCH HAZEL/GLYCERIN 1 PAD TOP PRN (18:53)
[2025-01-18] MEDS ORDERED: HYDROCORTISONE 1% CREAM 28 GM TUBE TOP PRN (18:53)
[2025-01-18] MEDS ORDERED: SIMETHICONE CHEW 80 MG TABLET PO PRN (18:53)
[2025-01-18] MEDS ORDERED: OXYTOCIN/SODIUM CHLORIDE 500 ML IV PRN (18:53)
[2025-01-18] MEDS ORDERED: NALOXONE 0.4 MG/ML VIAL IVP PRN ×3 (18:53→19:30)
[2025-01-18] MEDS ORDERED: LABETALOL 20 MG/4 ML SYRINGE IVP PRN ×3 (18:53)
[2025-01-18] MEDS ORDERED: hydrALAZINE INJ 20 MG/ML VIAL IVP PRN ×2 (18:53)
[2025-01-18] MEDS ORDERED: ONDANSETRON 4 MG/2 ML VIAL IVP PRN ×3 (18:53→19:30)
--- NOTE | 2025-01-18 19:05 | OPERATIVE REPORT ---
Operative Report General Admit Date: 01/16/25 Procedure Data: Operation Date: 01/18/25 17:30 Proposed Procedures p Section(Not Applicable) - Juliann Lua MD Actual Procedures p Primary low Transverse Section(Not Applicable) - Juliann Lua MD Pre-Op Diagnosis: failure to progress in labor Anesthesia Type Spinal Case Staff Anesthesia Provider: Wesly Madden Assisting Provider: Elizabeth Landry Case Times Procedure Start: 01/18/25 18:10 Time out: 01/18/25 18:08 Pre-Op Diagnosis: failure to progress in 1st stage of labor, meconium, ivf , ama, Post Op Diagnosis: as above Procedure Note Intake, IV Amount (ml): 1,000 Estimated Blood Loss (ml): 300 Output, Urine Amount (ml): 150 Pathology: none, but culture swabs are collected from placenta. parents want to bring placenta home. Indications: here for induction as 44 yo and 41+ weeks with IVF . Progressed to 6 cm over 2+ days and no further. ready to proceed with c section. Findings: live female . meconium, vernix. Baby temp over 39 degrees. no odor in the uterus or fluid. Bladder was quite high signifying an obstructed labor. uterus, tubes and ovaries appeared normal. some spots on bladder that were bruising or endometriosis. Complications: none Other Other Information/Narrative: Procedure: Low Transverse Section. Anesthesia: spinal placed, epidural from labor removed. Humanities Professor: My educational assistant teacher was scrubbed and present during the entire procedure and assisted with visualization, hemostasis, fundal pressure for delivery, and closure. Procedure Details The risks, benefits, complications, treatment options, and expected outcomes were discussed with the patient. The patient concurred with the proposed plan, giving informed consent. The patient was taken to the Operating Room. 2 grams of Cefazolin and 500 mg Azithromycin were given. She had sequential compression devices on her lower extremities. Spinal anestheia was placed. Galicia catheter was placed. Vaginal and abdominal prep was done. Time out was done. Drapes were placed. Anesthesia was tested and found to be adequate. A Pfannenstiel incision was made and carried down through the subcutaneous tissue to the fascia. Fascial incision was made and extended transversely. The fascia was from the underlying rectus tissue superiorly and inferiorly. The peritoneum was identified and entered. There was a relatively large amount of pre-peritoneal fat. Also the bladder was quite high up on the uterus. Peritoneal incision was stretched. The Jose Daniel retractor was placed and rolled down. The uterus was palpated to examine lie. A low transverse uterine incision was made. The incision was stretched manually. Bag of water was entered during the process and fluid was quite green. The baby was elevated through the incision, OT facing right. The baby was delivered and brought up towards her chest to show mom. Baby was dried and stimulated. I waited for 1 minute to clamp and cut the cord. Baby was handed off to the waiting studio operator. After the umbilical cord was clamped and cut, cord blood was obtained for evaluation. The placenta was removed intact using gentle traction and appeared normal. Oxytocin was infused in the IV. The uteri ne outline, tubes and ovaries appeared normal. The uterine incision was closed with running locked sutures of 0 Monocryl suture. A second horizontal imbricating layer was placed with the same suture. Hemostasis was observed. The Jose Daniel retractor was removed. Rectus muscles were examined carefully for bleeding. I started to reapproximate the fascia and the adipose tissue was bulging out. I placed a figure of 8 of 0 Vicryl into the muscle and peritoneum to bring it together and tuck the tissue away so it did not get caught up in the closure. The fascia was then reapproximated with running sutures of 0 Vicryl. The subcutaneous tissue was brought together with 3.0 Vicryl suture and the skin was closed with 4.0 Monocryl in subcuticular fascia. Wide steri strip was placed over the wound. Bandage was placed. Uterus was expressed. Fundus was firm. Patient was then brought to her new room in stable condition. Instrument, sponge, and needle counts were correct prior the abdominal closure and at the conclusion of the case. Drains: Galicia catheter to gravity Complications: None; patient tolerated the procedure well. Condition: stable Plan: Routine post op care
[2025-01-18] MEDS: ceFAZolin (2G) 2 GM in SODIUM CHLORIDE 0.9% MINIBAG 100 ML IV ONE (19:15)
[2025-01-18] MEDS: AZITHROMYCIN INJ 500 MG in SODIUM CHLORIDE 0.9% 250 ML IV STA (19:16)
[2025-01-18] MEDS ORDERED: METOCLOPRAMIDE 10 MG/2 ML VIAL IVP PRN ×2 (19:30)
[2025-01-18] MEDS ORDERED: ATROPINE ABBOJECT 1 MG/10 ML SYRINGE IVP PRN (19:30)
[2025-01-18] MEDS ORDERED: NALBUPHINE 10 MG/ML AMP IVP PRN (19:30)
[2025-01-18] MEDS ORDERED: fentaNYL 100 MCG/2 ML VIAL IT ONE (19:30)
[2025-01-18] MEDS ORDERED: ePHEDrine 50 MG/ML VIAL IVP PRN ×2 (19:30)
[2025-01-18] MEDS ORDERED: HYDROmorphone 0.5 MG/0.5 ML SYRINGE IVP PRN (19:30)
[2025-01-18] MEDS ORDERED: MORPHINE PF 5 MG/10 ML VIAL IT ONE (19:30)
[2025-01-18] MEDS ORDERED: MORPHINE 2 MG/ML CARPUJECT IVP PRN (19:30)
[2025-01-18] MEDS ORDERED: fentaNYL 100 MCG/2 ML VIAL IVP PRN (19:30)
[2025-01-19] MEDS: KETOROLAC 30 MG/ML VIAL IVP SCH ×2 (02:03→16:37)
[2025-01-19 05:52] LABS: HCT - HEMATOCRIT 34.2 % (37.0-47.0); HGB - HEMOGLOBIN 11.1 g/dL (12.0-16.0); MEAN PLATELET VOLUME 10.2 fL (7.9-10.8); PLT - PLATELET COUNT 250.0 10^3/uL (130-450); RED CELL DISTRIBUTION WIDTH 16.2 % (12.0-15.0)
[2025-01-19] MEDS: ACETAMINOPHEN 500 MG TABLET PO SCH (06:53)
--- NOTE | 2025-01-19 07:59 | PROVIDER PROGRESS NOTE ---
Subjective Subjective Subjective: Subjective Patient reports she is doing well. Lochia appropriate. Denies heavy bleeding. Ambulating. Pelvic and abdominal pain well-controlled. Tolerating oral intake. Diet: Regular. Catheter removed earlier today. Will get up and try to use the restroom later. Patient is bonding with baby in room Breast feeding going well. Denies feeling lightheaded, dizzy or excessively fatigued. Objective General: Alert, oriented, no apparent distress. Cardiovascular: Regular rate. Regular rhythm. Lungs: Lungs clear to auscultation bilaterally Abdomen: Uterus firm. Below umbilicus. No guarding or rebound. Extremities: No pain on palpation. No cords palpated. Distal pulses intact. Incision: Bandage in place. Current Medications Current Medications Current Medications: Current Medications Generic Name Dose Route Start Last Admin Trade Name Freq PRN Reason Stop Dose Admin Acetaminophen 1,000 mg 01/17/25 19:08 01/18/25 19:44 Acetaminophen 500 Mg Tablet PO 1,000 mg Q6HR PRN Administration Pain or Fever > 38C (100.4F) Acetaminophen 1,000 mg 01/18/25 19:00 01/19/25 06:53 Acetaminophen 500 Mg Tablet PO 1,000 mg Q8H YU Administration Carboprost Tromethamine 250 mcg 01/16/25 09:11 Carboprost Tromethamine 250 Mcg/Ml Vial IM .ONCE PRN Hemorrhage Diphenhydramine HCl 25 mg 01/18/25 18:53 Diphenhydramine Inj 50 Mg/Ml Vial IVP Q6H PRN Allergy Symptoms Diphenhydramine HCl 25 mg 01/18/25 18:53 Diphenhydramine 25 Mg Capsule PO Q6HR PRN Allergy Symptoms Diphenhydramine HCl 25 mg 01/18/25 18:53 Diphenhydramine 25 Mg Capsule PO QPM PRN Insomnia Docusate Sodium 200 mg 01/18/25 21:00 Docusate Sodium 100 Mg Capsule PO BID YU Doxylamine Succinate 25 mg 01/16/25 21:27 01/16/25 22:29 Doxylamine 25 Mg Tablet PO 25 mg QPM PRN Administration Insomnia Enoxaparin Sodium 40 mg 01/19/25 07:00 Enoxaparin 40 Mg/0.4 Ml Syringe SUBQ DAILY [facility] Ephedrine Sulfate 5 mg 01/18/25 19:30 Ephedrine 50 Mg/Ml Vial IVP 01/19/25 19:30 Q5M PRN For SBP<100;give until SBP>100 Fentanyl 50 mcg 01/16/25 09:11 Fentanyl 100 Mcg/2 Ml Vial IVP Q1H PRN Severe Pain (score 7-10) Hydralazine HCl 5 - 10 mg 01/16/25 09:11 Hydralazine Inj 20 Mg/Ml Vial IVP Q20M PRN SBP> or= 160 OR DBP> or= 110 Protocol Hydralazine HCl 5 - 20 mg 01/18/25 18:53 Hydralazine Inj 20 Mg/Ml Vial IVP Q20M PRN SBP> or= 160 OR DBP> or= 110 Protocol Hydralazine HCl 10 mg 01/18/25 18:53 Hydralazine Inj 20 Mg/Ml Vial IVP .ONCE PRN SBP> or= 160 OR DBP> or= 110 Protocol Hydrocortisone 1 applic 01/18/25 18:53 Hydrocortisone 1% Cream 28 Gm Tube TOP QID PRN Hemorrhoids Hydromorphone HCl 0.2 - 0.6 mg 01/18/25 19:30 Hydromorphone 0.5 Mg/0.5 Ml Syringe IVP 01/19/25 19:30 Q5M PRN PAIN (First Choice) Lactated Ringer's 500 mls @ 999 mls/hr 01/16/25 09:11 01/18/25 03:23 Lr IV 999 mls/hr PRN PRN Administration PER PHYSICIAN ORDER Oxytocin/Sodium Chloride 500 mls @ 999 mls/hr 01/16/25 09:11 Pitocin/Sodium Chloride IV PRN PRN POST- HEMORR PREVENTION Protocol 999 MILLIUNIT/MIN Tranexamic Acid 1,000 mg in 100 mls @ 600 mls/hr 01/16/25 09:11 Tranexamic 1,000 Mg/100ml-Nacl IV Q30M PRN EBL >1200mL and within 3hr Oxytocin/Sodium Chloride 500 mls @ 2 mls/hr 01/17/25 13:00 01/18/25 19:11 Pitocin/Sodium Chloride IV 50 milliunit/min TITR YU 50 mls/hr Protocol Titration 2 MILLIUNIT/MIN Lactated Ringer's 1,000 mls @ 100 mls/hr 01/18/25 19:00 Lr IV .Q10H YU Oxytocin/Sodium Chloride 500 mls @ 999 mls/hr 01/18/25 18:53 Pitocin/Sodium Chloride IV PRN PRN POST- HEMORR PREVENTION Protocol 999 MILLIUNIT/MIN Ibuprofen 600 mg 01/19/25 19:00 Ibuprofen 600 Mg Tablet PO Q6HR YU Labetalol HCl 20 - 80 mg 01/16/25 09:11 Labetalol 20 Mg/4 Ml Syringe IVP Q10M PRN SBP> or= 160 OR DBP> or= 110 Protocol Labetalol HCl 20 mg 01/16/25 09:11 Labetalol 20 Mg/4 Ml Syringe IVP .ONCE PRN SBP> or= 160 OR DBP> or= 110 Protocol Labetalol HCl 20 mg 01/18/25 18:53 Labetalol 20 Mg/4 Ml Syringe IVP .ONCE PRN SBP> or= 160 OR DBP> or= 110 Protocol Labetalol HCl 20 - 40 mg 01/18/25 18:53 Labetalol 20 Mg/4 Ml Syringe IVP Q10M PRN SBP> or= 160 OR DBP> or= 110 Protocol Labetalol HCl 20 - 80 mg 01/18/25 18:53 Labetalol 20 Mg/4 Ml Syringe IVP Q10M PRN SBP> or= 160 OR DBP> or= 110 Protocol Lidocaine HCl 20 ml 01/16/25 09:11 Lidocaine 1% 20 Ml Mdv ID 01/19/25 09:11 .ONCE PRN PERINEAL REPAIR Methylergonovine Maleate 0.2 mg 01/16/25 09:11 Methylergonovine 0.2 Mg/Ml Vial IM .ONCE PRN Hemorrhage Metoclopramide HCl 10 mg 01/17/25 12:43 01/18/25 14:33 Metoclopramide 10 Mg/2 Ml Vial IVP 10 mg Q6HR PRN Administration Nausea / Vomiting Metoclopramide HCl 10 mg 01/18/25 19:30 Metoclopramide 10 Mg/2 Ml Vial IVP Q6HR PRN N/V not relieved by Zofran Metoclopramide HCl 10 mg 01/18/25 19:30 Metoclopramide 10 Mg/2 Ml Vial IVP 01/19/25 19:30 Q6HR PRN Nausea / Vomiting Misoprostol 600 mcg 01/16/25 09:11 Misoprostol 200 Mcg Tablet BC .ONCE PRN Hemorrhage Misoprostol 800 mcg 01/16/25 09:11 Misoprostol 200 Mcg Tablet MN .ONCE PRN Hemorrhage Morphine Sulfate 2 - 4 mg 01/18/25 19:30 Morphine 2 Mg/Ml Carpuject IVP 01/19/25 19:30 Q5M PRN PAIN (3rd Choice) Nalbuphine HCl 2.5 - 5 mg 01/17/25 12:43 Nalbuphine 10 Mg/Ml Amp IVP Q4H PRN ITCHING Nalbuphine HCl 5 mg 01/18/25 19:30 Nalbuphine 10 Mg/Ml Amp IVP 01/19/25 19:30 Q4H PRN ITCHING Naloxone HCl 0.1 mg 01/17/25 12:43 Naloxone 0.4 Mg/Ml Vial IVP Q2M PRN RR<8 Naloxone HCl 0.4 mg 01/18/25 18:53 Naloxone 0.4 Mg/Ml Vial IVP .ONCE PRN Opioid overdose Naloxone HCl 0.1 mg 01/18/25 19:30 Naloxone 0.4 Mg/Ml Vial IVP 01/19/25 19:30 Q2M PRN RESP RATE <8 Naloxone HCl 0.1 mg 01/18/25 19:30 Naloxone 0.4 Mg/Ml Vial IVP 01/19/25 19:30 Q2M PRN RR < 8 Nifedipine 10 - 20 mg 01/18/25 18:53 Nifedipine 10 Mg Capsule PO Q20M PRN SBP> or= 160 OR DBP> or= 110 Protocol Ondansetron HCl 4 mg 01/16/25 21:27 Ondansetron 4 Mg/2 Ml Vial IVP Q6HR PRN Nausea / Vomiting Ondansetron HCl 4 mg 01/16/25 21:27 Ondansetron Odt 4 Mg Tablet TL Q6HR PRN Nausea / Vomiting Ondansetron HCl 4 mg 01/17/25 12:43 Ondansetron 4 Mg/2 Ml Vial IVP Q6HR PRN Nausea / Vomiting Ondansetron HCl 4 mg 01/18/25 18:53 Ondansetron 4 Mg/2 Ml Vial IVP Q4HR PRN Nausea / Vomiting Ondansetron HCl 4 mg 01/18/25 19:30 Ondansetron 4 Mg/2 Ml Vial IVP 01/19/25 19:30 ONCE PRN N/V (First Choice) Ondansetron HCl 4 mg 01/18/25 19:30 Ondansetron 4 Mg/2 Ml Vial IVP 01/19/25 19:30 Q6HR PRN Nausea / Vomiting Oxycodone HCl 5 mg 01/18/25 18:53 Oxycodone 5 Mg Tablet PO Q4HR PRN Severe Pain 6 -10 Oxytocin 10 unit 01/16/25 09:11 Oxytocin 10 Unit/Ml Vial IM .ONCE PRN Step One if no IV access. Phenylephrine HCl 0.1 mg 01/17/25 14:05 Phenylephrine Hcl 0.5 Mg/5 Ml Ampule IVP Q5MIN PRN SBP below 110, or intolerance to maternal hypotension, Simethicone 80 mg 01/18/25 18:53 Simethicone Chew 80 Mg Tablet PO TID PRN Gas Sodium Chloride 10 ml 01/16/25 09:11 Sodium Chloride Flush 0.9% 10 Ml Syringe IVP PRN PRN NEEDED PER PROVIDER ORDERS Sodium Chloride 10 ml 01/16/25 10:00 01/18/25 00:48 Sodium Chloride Flush 0.9% 10 Ml Syringe IVP 10 ml Q8H YU Administration Terbutaline Sulfate 0.25 mg 01/16/25 09:11 Terbutaline 1 Mg/Ml Vial SUBQ .ONCE PRN Tachystole Witch Rachel/Glycerin 1 pad 01/18/25 18:53 Witch Rachel/Glycerin 1 Pad TOP PRN PRN Itching Objective Vital Signs/Intake & Output Vital Signs: Vital Signs x48h Temp Pulse Resp BP Pulse Ox 01/19/25 06:56 36.6 C 80 15 126/84 96 01/19/25 02:00 36.6 C 70 16 131/81 H 94 Intake & Output: Intake & Output 01/16/25 01/17/25 01/18/25 01/19/25 23:59 23:59 23:59 23:59 Intake Total 1524 / 1524 4957 / 4957 150 / 150 Output Total 2200 / 2200 2300 / 2300 Balance 1524 / 1524 2757 / 2757 -2150 / -2150 Lab Results 01/19/25 05:48 01/18/25 11:04 Other Labs: Lab Results x24hrs 01/19/25 01/18/25 01/16/25 Range/Units 05:48 11:04 08:15 WBC 16.9 H 15.8 H (4.8-10.8) x10^3/uL RBC 3.77 L 3.95 L (4.20-5.40) 10^6/uL Hgb 11.1 L 11.7 L (12.0-16.0) g/dL Hct 34.2 L 35.8 L (37.0-47.0) % MCV 90.7 90.6 (81.0-99.0) fL MCH 29.4 29.6 (27.0-31.0) pg MCHC 32.5 32.7 (32.0-36.0) g/dL RDW 16.2 H 16.4 H (12.0-15.0) % Plt Count 250 264 (130-450) 10^3/uL MPV 10.2 10.6 (7.9-10.8) fL Neut # (Auto) 13.4 H (1.5-6.6) 10^3/uL Lymph # (Auto) 1.6 (1.5-3.5) 10^3/uL [place] # (Auto) 0.6 (0.0-1.0) 10^3/uL Eos # (Auto) 0.0 (0.0-0.7) 10^3/uL Baso # (Auto) 0.0 (0.0-0.1) 10^3/uL Absolute Nucleated RBC 0.02 x10^3/uL Nucleated RBC % 0.1 /100WBC Sodium 131 L (135-145) mmol/L Potassium 3.9 (3.5-4.5) mmol/L Chloride 103 (101-111) mmol/L Carbon Dioxide 19 L (21-32) mmol/L Anion Gap 9.0 (6-13) BUN 11 (6-20) mg/dL Creatinine 0.9 (0.6-1.3) mg/dL Estimated GFR (MDRD) 68 L (>89) Glucose 168 H (74-104) mg/dL Estimat Average Glucose 114 H (70-100) mg/dL Hemoglobin A1c % 5.6 (4.27-6.07) % Calcium 8.2 L (8.5-10.3) mg/dL Total Bilirubin 0.4 (0.2-1.0) mg/dL AST 20 (10-42) IU/L ALT 16 (10-60) IU/L Alkaline Phosphatase 204 H (42-121) IU/L Total Protein 6.0 L (6.4-8.9) g/dL Albumin 3.0 L (3.2-5.5) g/dL Globulin 3.0 (2.1-4.2) g/dL Albumin/Globulin Ratio 1.0 (1.0-2.2) Assessment/Plan Problem List (1) Delivery by section: Impression: Routine care and postoperative care. No diagnosis of chorioamnionitis, but will continue to monitor. Patient had tachycardia during labor, but no other symptoms. Developed a fever , but not sustained. Fetus with initial fever, but resolved and doing well now. Already received antibiotics for surgical prophylaxis with cefazolin and azithromycin. White count essentially unchanged from prior, now 16.9. Mother baby still remained afebrile and doing well. Lovenox started for DVT prophylaxis. Will repeat CBC tomorrow. Monitor for fevers or other changes. Anticipate discharge in 1 to 2 days. (2) Delivery outcome of liveborn infant: Impression: As above Qualifiers: Number of infants delivered: single infant Qualified Code(s): Z37.0 - Single live
[2025-01-19] MEDS: DOCUSATE SODIUM 100 MG CAPSULE PO SCH (08:06)
[2025-01-19] MEDS: ENOXAPARIN 40 MG/0.4 ML SYRINGE SUBQ SCH (10:08)
[2025-01-19] MEDS: IBUPROFEN 600 MG TABLET PO SCH (23:46)
[2025-01-20] MEDS: oxyCODONE 5 MG TABLET PO PRN (01:29)
[2025-01-20 05:46] LABS: HCT - HEMATOCRIT 33.5 % (37.0-47.0); HGB - HEMOGLOBIN 10.7 g/dL (12.0-16.0); MEAN PLATELET VOLUME 10.1 fL (7.9-10.8); NRBC ABSOLUTE COUNT (AUTO) 0.00 x10^3/uL; NUCLEATED RED BLOOD CELLS AUTO 0.0 /100WBC; PLT - PLATELET COUNT 288 10^3/uL (130-450); RED CELL DISTRIBUTION WIDTH 16.5 % (12.0-15.0)
[2025-01-20 18:25] VITALS: BP 113/94; TEMP 98.1; O2SAT 100
--- NOTE | 2025-01-20 18:45 | Discharge Summary ---
"Discharge Summary Admit Date: 01/16/25 Discharge Date: 01/20/25 Discharging Provider: Michael Ma MD Code Status: Attempt Resuscitation DIAGNOSES Admission Diagnoses: 41 weeks gestation Postdates IVF Advanced maternal age Induction of labor Discharge Diagnoses with Status of Each Condition: Status post primary low-transverse section Delivery live portillo HPI History of Present Illness: Subjective Patient reports she is doing well. Lochia appropriate. Denies heavy bleeding. Ambulating. Pelvic and abdominal pain well-controlled. Tolerating oral intake. Diet: Regular. Voiding without difficulty. Passing flatus. Denies BM. Patient is bonding with baby in room Breast feeding going well. Denies feeling lightheaded, dizzy or excessively fatigued. Objective General: Alert, oriented, no apparent distress. Cardiovascular: Regular rate. Regular rhythm. Lungs: No increased work of breathing. Abdomen: Uterus firm. Below umbilicus. No guarding or rebound. Extremities: No pain on palpation. No cords palpated. Distal pulses intact. Incision: Clean, dry, and intact. CONSULTS | PROCEDURES Consultations: Anesthesia, PATTERN ATTENDANT Procedures: Primary low-transverse section HOSPITAL COURSE Hospital Course: Patient was admitted for induction of labor for postdates , advanced maternal age. She had a long induction and progressed to 6 cm, but remained unchanged. She was ruptured for over 36 hours. Did develop tachycardia but no fever during labor. After failure to progress, patient is taken for a primary low-transverse section. After her , she did develop an isolated fever, but not sustained. She had no elevation in her white count, only received preoperative antibiotics of azithromycin and cefazolin. She was stable after delivery and had no additional episodes. At , did have an elevated temperature, but this also was not sustained. Both were doing well on day 2 and were discharged home. ALLERGIES Allergies Allergy/AdvReac Type Severity Reaction Status Date / Time tree nut Allergy Intermediate Respiratory Verified 01/05/25 09:41 MEDICATIONS Ambulatory Orders Medication Instructions Recorded Confirmed vits no.[id number] fum 1 tab PO DAILY 01/16/25 28 mg iron-folic acid 800 mcg tablet (Classic ) doxylamine succinate 25 mg tablet 25 mg PO Q6H PRN albino sea 06/23/24 01/16/25 (Unisom (doxylamine)) metoclopramide HCl 5 mg tablet 5 mg PO Q6H PRN nausea and 10/07/24 01/16/25 (Reglan) vomiting #90 tabs ibuprofen 600 mg tablet 600 mg PO Q6H PRN Pain #30 t abs 01/20/25 oxycodone 5 mg tablet 5 mg PO Q4H PRN Severe Pain #20 01/20/25 tabs PHYSICAL EXAM AT DISCHARGE Vital Signs: Vital Signs x48h Temp Pulse Resp BP BP Pulse Ox 01/20/25 18:23 36.7 C 70 18 113/94 H 100 01/20/25 14:37 37.2 C 95 16 152/100 H 98 01/20/25 11:53 37.4 C 95 18 149/93 H 97 LABS 01/20/25 05:41 01/18/25 11:04 FOLLOW UP Follow Up: With [facility] for blood pressure check in 3 days and visit in 1 week. TIME SPENT Time Spent in Discharge (Minutes): 30 Discharge Plan Discharge Patient Disposition: Home, Self Care Prescriptions: New ibuprofen 600 mg tablet 600 mg PO Q6H PRN (Reason: Pain) Qty: 30 0RF oxycodone 5 mg tablet 5 mg PO Q4H PRN (Reason: Severe Pain) Qty: 20 0RF Continued Classic 28 mg iron- 800 mcg tablet 1 tab PO DAILY Unisom (doxylamine) 25 mg tablet 25 mg PO Q6H PRN (Reason: nausea) metoclopramide HCl [Reglan] 5 mg tablet 5 mg PO Q6H PRN (Reason: nausea and vomiting) Qty: 90 2RF Activity Restrictions: Additional Comments Diet: Regular Plan of Treatment: Ibuprofen 600mg every 6 hours and acetaminophen 1000 mg every 6 hours as needed for pain. Please take oxycodone for breakthrough pain. Please watch for signs of infection including fever, chills, abnormal discharge, redness or discharge from the incision. Please let us know if you have any concerns about your mood or worries for depression. Print Language: Maltese Patient Instructions: Depression, After a Follow-up Care: Michael Ma MD [Provider Admit Priv/Credential, Obstetrics/Gynecology]"
--- NOTE | 2025-01-20 20:41 | Labor Flowsheet ---
Labor Flowsheet Datetime Report Generated by CPN: 01/20/2025 20:41 Datetime: 01/18/2025 17:30 Pulse: 99 SpO2 (%): 98 ASSESSMENT A Monitor Mode: Telemetry FHR Baseline Rate : 165 Variability: Moderate 6-25 bpm Accelerations: None Decelerations: None Category: Category II Oxygen Method: Room Air LaborFlag: Labor Datetime: 01/18/2025 17:17 Communication Comments: Shaved pt, theraworx wipes Datetime: 01/18/2025 17:15 FHR Baseline Changes: Tachycardia Datetime: 01/18/2025 17:01 VITAL SIGNS NBP Sys/Ambika/Mean (mmHg): 135 : 81 : 92 Datetime: 01/18/2025 17:00 Contraction Comments: IUPC out ctx pit off ctx not being monitored Datetime: 01/18/2025 16:52 Anesthesia Comments: 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 bedside to discuss Datetime: 01/18/2025 16:45 UTERINE ACTIVITY Monitor Mode: Internal Frequency (min): 1-3 Quality: Strong Duration (sec): 50-80 Pattern: Normal: <= 5 Contractions in 10 Minutes Resting Tone (Palpate): Relaxed Resting Tone IUP (mmHg): 30 [place] Units (mmHg): 80 Datetime: 01/18/2025 16:19 MEDICATIONS Pitocin (milliunits): Discontinued Datetime: 01/18/2025 16:05 VAGINAL EXAM Dilatation (cm): 6.0 Effacement (%): 90 Station: -1 Datetime: 01/18/2025 16:00 Intensity IUP (mmHg): 25 Datetime: 01/18/2025 15:04 Patient Position/Activity: Left Lateral Patient Care Comments: pillow between knees Datetime: 01/18/2025 15:01 Pitocin Checklist: At Least 1 Acceleration of 15 bpm x 15 Seconds in 30 Minutes or Adequate Variability; No More than 1 Late Deceleration Occurred in Past 30 Minutes; No More than 2 Variable Decelerations > 60 Seconds in Duration and decreasing >60 bpm in 30 minutes; No More than 5 Uterine Contractions in 10 Minutes for any 20 Minute Interval; Uterus Palpates Soft between Contractions; IUPC Resting Tone less than 25 mmHg Datetime: 01/18/2025 14:42 Hygiene: Chey Care; Peripad Changed Datetime: 01/18/2025 13:00 Actions for Decelerations: Side to Side Datetime: 01/18/2025 12:00 Temperature (C): 36.8 Datetime: 01/18/2025 10:29 Membrane Comments: Amnioinfusion complete Datetime: 01/18/2025 08:23 Exam by: K.Bur Datetime: 01/18/2025 08:18 COMMUNICATION Communication: RN at Bedside; Provider at Bedside Datetime: 01/18/2025 06:41 Pain Presence: Intermittent Pain Type: Cramping; Contraction Pain Location: Abdomen; Perineum Pain Assessment Comments: pt sleeping Datetime: 01/18/2025 05:00 Stage of : Labor I/O Interventions: Clear Liquids Given Provider Reviewed Strip: Yes Notification Reason: Status; Labor Status; Pain Datetime: 01/18/2025 04:47 PAIN Pain Scale: 5 Pain Goal: 4 Pain Coping: Talking Through Contractions Vaginal Bleeding: None Cervix, Consistency: Soft Cervix, Position: Midposition Comfort Measures: Family Support Datetime: 01/18/2025 03:29 Respirations: 16 Datetime: 01/18/2025 03:02 Amniotic Fluid Amount: Small Amniotic Fluid Odor: Normal ANESTHESIA Anesthesia Plans: Epidural Anesthesia Level Check: T7 Datetime: 01/18/2025 02:01 Pain Relief Measures: Epidural Given Datetime: 01/18/2025 01:01 Temperature Route: Oral Datetime: 01/18/2025 00:29 Amnioinfusion: Continues Datetime: 01/17/2025 23:20 Comments: position change Datetime: 01/17/2025 21:56 Provider Notified (Name): Elizabeth Burckhardt Datetime: 01/17/2025 20:33 Medication Comments: restart@ 4mu per CNM Datetime: 01/17/2025 19:37 Monitor Interventions for UA: [place] Adjusted Monitor Interventions for FHR: Ultrasound Adjusted Amniotic Fluid Color: Light Meconium Datetime: 01/17/2025 18:47 PATIENT CARE IV/Blood Work: IV Bolus Started Datetime: 01/17/2025 13:26 Analgesics/Sedatives: Phenergan (mg) @ 1328 via [employer]ICE [employer]IENT SERVICES Datetime: 01/17/2025 13:13 Epidural Procedure: Test Dose Datetime: 01/17/2025 13:03 PROCEDURE TIME OUT Procedure Verify: Correct Patient Position Datetime: 01/17/2025 05:40 MATERNAL ASSESSMENT Level of Consciousness: Alert Headache: Denies Nausea/Vomiting: Denies RUQ Epigastric Pain: Denies Datetime: 01/17/2025 03:50 Membranes Ruptured Date/Time: 01/17/2025 03:23 Datetime: 01/17/2025 03:23 Membrane Status: Ruptured Membranes Rupture Method: Spontaneous Datetime: 01/17/2025 01:37 Cervical Ripening Agents: Cervidil Datetime: 01/16/2025 15:45 DTR's/Clonus: DTRs 1+; No Clonus Breath Sounds, Left: Clear and Equal Breath Sounds, Right: Clear and Equal Datetime: 01/16/2025 15:37 Vital Sign Comments: Pt legs crossed- will recheck
== END 2025-01-20 19:30 | disposition home or self-care (01) | DRG 787 ==
LOC: WFO 08:04 → FBP 08:05
PROVIDERS: ADMIT Nurse Practitioner Obstetrics & Gynecology; ATTEND Nurse Practitioner Obstetrics & Gynecology